=== PATIENT | male | born 1950 | race Caucasian/White ===

== ENCOUNTER 2019-04-09 01:31 | Emergency (ER) | payer MEDICARE, BC ==
[2019-04-09] MEDS ORDERED: Ketorolac 60 MG/2 ML SDV IM ONE (02:15)
[2019-04-09] MEDS ORDERED: Cyclobenzaprine 10 MG Tab PO ONE (02:15)
--- NOTE | 2019-04-09 02:17 | EDM.PDOC ---
ED HPI GENERAL MEDICAL PROBLEM - General Chief Complaint: Upper Extremity Injury/Pain Stated Complaint: LEFT SHOULDER PAIN Time Seen by Provider: 04/09/19 02:15 Source of Information: Reports: Patient, RN Notes Reviewed History Limitations: Reports: No Limitations - History of Present Illness INITIAL COMMENTS - FREE TEXT/NARRATIVE: 68-year-old gentleman presents to the emergency department today with complaint of left shoulder pain, he admits to some overuse injury has been going on for a couple days now has progressively gotten worse difficult for him to sleep. 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: Acetaminophen left shoulder Pain Score (Numeric/FACES): 10 - Related Data Allergies Allergy/AdvReac Type Severity Reaction Status Date / Time Iodinated Contrast- Oral and Allergy Hives Verified 04/09/19 02:05 IV Dye Home Meds: Home Meds Esomeprazole Magnesium [Nexium] 40 mg PO DAILY 04/09/19 [History] Past Medical History Gastrointestinal History: Reports: GERD Immunologic History: Reports: None - Past Surgical History GI Surgical History: Reports: Appendectomy Social & Family History - Tobacco Use Smoking Status *Q: Never Smoker Second Hand Smoke Exposure: No - Caffeine Use Caffeine Use: Reports: Coffee - Recreational Drug Use Recreational Drug Use: Yes Review of Systems - Review of Systems Review Of Systems: See Below Musculoskeletal: Reports: Shoulder Pain Neurological: Reports: No Symptoms ED EXAM, GENERAL - Physical Exam Exam: See Below Free Text/Narrative:: Examination of the shoulder he does have full range of motion however pain is greatest past 100 abduction there is tenderness along the deltoid and rhomboid region on the left side Exam Limited By: No Limitations General Appearance: Alert, WD/WN, No Apparent Distress Course - Vital Signs Last Recorded V/S: Last Vital Signs Temp 96.3 F 04/09/19 02:09 Pulse 63 04/09/19 02:09 Resp 14 04/09/19 02:09 BP 161/94 H 04/09/19 02:09 Pulse Ox 97 04/09/19 02:09 - Orders/Labs/Meds Meds: Medications Discontinued Medications Generic Name Dose Route Start Last Admin Trade Name Freq PRN Reason Stop Dose Admin Cyclobenzaprine HCl 10 mg 04/09/19 02:15 04/09/19 02:24 Flexeril PO 04/09/19 02:16 10 mg ONETIME ONE Administration Ketorolac Tromethamine 60 mg 04/09/19 02:15 04/09/19 02:24 Toradol IM 04/09/19 02:16 60 mg ONETIME ONE Administration Departure - Departure Time of Disposition: 03:06 Disposition: Home, Self-Care 01 Condition: Fair Clinical Impression: Left shoulder strain Qualifiers: Encounter type: initial encounter Qualified Code(s): S46.912A - Strain of unspecified muscle, fascia and tendon at shoulder and upper arm level, left arm , initial encounter - Discharge Information Referrals: PCP,None [Primary Care Provider] - Forms: ED Department Discharge Additional Instructions: Use ibuprofen for baseline pain control use hydrocodone for breakthrough pain, Please followup with your primary care provider in 3-5 days if not better, please call return to the emergency department with worsening of symptoms. - Assessment/Plan Assessment:: Assessment Acuity = acute Site and laterality = left shoulder strain Etiology = secondary to repetitive motion Manifestations = pain Location of injury = Home Lab values = none Plan Some relief combination Toradol and Flexeril, was discharged home with hydrocodone 5/325 one tab by mouth 3 times a day when necessary total #8, follow -up primary care in 3-5 days if no improvement This note was dictated using [employer] voice recognition software please call with any questions on syntax or grammar.
== END 2019-04-09 03:20 | disposition home or self-care (01) ==
LOC: JP.ED 01:31
DX: S46.912A Strain of unspecified muscle, fascia and tendon at shoulder and upper arm level, left arm, initial encounter (principal); K21.9 Gastro-esophageal reflux disease without esophagitis; Z91.041 Radiographic dye allergy status; Z79.899 Other long term (current) drug therapy; Z90.49 Acquired absence of other specified parts of digestive tract; X58.XXXA Exposure to other specified factors, initial encounter
CPT/HCPCS: 96372; 99283; A9270; J1885